=== PATIENT | male | born 1995 | race Caucasian/White ===

== ENCOUNTER 2020-12-30 19:50 | Emergency (ER) | payer BC ==
[2020-12-30] MEDS ORDERED: DAILY VALUE1 EACH PO (20:03)
[2020-12-30 21:02] VITALS: BP 143/94
== END 2020-12-30 21:02 | disposition home or self-care (01) ==
LOC: ED 19:50
DX: J02.9 Acute pharyngitis, unspecified (principal)
CPT/HCPCS: J1100